=== PATIENT | female | born 1985 | race Two or more races ===

== ENCOUNTER 2022-12-21 21:26 | Emergency (ER) | payer OTHER ==
[~2022-12-21] VITALS: Ht 172.7 cm; Wt 127.0 kg
[~2022-12-21 21:26] MED LIST: TAMIFLU30 MG PO
== END 2022-12-21 23:31 | disposition home or self-care (01) ==
LOC: ER 21:26
DX: F41.0 Panic disorder [episodic paroxysmal anxiety] (principal); Z91.013 Allergy to seafood